=== PATIENT | female | born 1985 | race Caucasian/White ===

== ENCOUNTER 2020-09-25 15:29 | Emergency (ER) | payer OTHER ==
[~2020-09-25 15:29] MED LIST: IBUPROFEN600 MG PO
== END 2020-09-25 17:05 | disposition home or self-care (01) ==
LOC: ER1 15:29
DX: O20.0 Threatened abortion (principal); O99.331 Smoking (tobacco) complicating pregnancy, first trimester; F17.210 Nicotine dependence, cigarettes, uncomplicated; Z3A.01 Less than 8 weeks gestation of pregnancy
CPT/HCPCS: 99283